=== PATIENT | female | born 1970 | race Caucasian/White ===

== ENCOUNTER 2016-04-05 14:42 | Emergency (ER) | payer OTHER ==
[2016-04-05 15:28] VITALS: BP 113/79
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
== END 2016-04-05 16:34 | disposition home or self-care (01) ==
LOC: UCCORT 14:42
DX: J32.9 Chronic sinusitis, unspecified (principal)
CPT/HCPCS: 99212; G0463